=== PATIENT | female | born 1980 | race Caucasian/White ===

== ENCOUNTER → 2023-03-24 10:41 | Outpatient (BNVA) | payer MEDICAID, SELFPAY | PROVIDERS: Family Provider Family Medicine; PCP Nurse Practitioner Family; Referring Provider Nurse Practitioner Family; Visit Provider Nurse Practitioner Family | DX: B07.0 Plantar wart (principal); D22.72 Melanocytic nevi of left lower limb, including hip; D23.62 Other benign neoplasm of skin of left upper limb, including shoulder | CPT/HCPCS: 11102; 99203 ==